=== PATIENT | female | born 1950 | race Caucasian/White ===

== ENCOUNTER 2017-10-16 07:12 | Inpatient (IN) ==
--- NOTE | 2017-10-15 18:32 | Anesthesia Evaluation PreOp ---
Date of Encounter: 10/16/17 Time of Encounter: 07:28 - Past History Planned Operation: Right Total Shoulder Cardiac History: HTN, Hyperlipidemia Pulmonary History: Denies Any Significant HX PUTTY PATCHER History: TIA Other Medical History: Renal (CKD, stage 3), Diabetes Type II, GERD, Other ( obesity BMI=46.4) Anesthesia History: No Prior Anesthetic Complications, Past Anesthesia Alcohol Use: none Drug use: none Medications and Allergies OxyCODONE Immed Rel [Roxicodone 5 MG] 5 mg PO Q6HR PRN 7 Days #28 tablet [Rx] Allopurinol [Zyloprim 100 MG] 100 mg PO DAILY 10/16/17 [History] Alogliptin Benzoate [Alogliptin] 25 mg PO DAILY 10/16/17 [History] Atorvastatin [Lipitor] 10 mg PO HS 10/16/17 [History] DULoxetine [Cymbalta] 30 mg PO DAILY 10/16/17 [History] Ergocalciferol (VITAMIN D2) [Vitamin D2] 50,000 unit PO SA 10/16/17 [History] Famotidine [Pepcid] 20 mg PO HS 10/16/17 [History] Fenofibrate Nanocrystallized [Triglide] 160 mg PO DAILY 10/16/17 [History] Furosemide [Lasix] 20 mg PO Q48H 10/16/17 [History] Furosemide [Lasix] 40 mg PO Q48H 10/16/17 [History] Insulin Glargine,Hum.rec.anlog [Basaglar Kwikpen U-100] 60 unit SQ HS 10/16/17 [ History] Insulin Glargine,Hum.rec.anlog [Basaglar Kwikpen U-100] 65 unit SQ QAM 10/16/17 [History] Insulin LISPRO [HumaLOG] 8 unit SQ 0800 10/16/17 [History] Insulin LISPRO [HumaLOG] 8 units SQ 1200 10/16/17 [History] Insulin LISPRO [HumaLOG] 12 units SQ 1800 10/16/17 [History] Loratadine [Claritin] 10 mg PO DAILY 10/16/17 [History] Losartan Potassium [Cozaar] 50 mg PO DAILY 10/16/17 [History] Magnesium Oxide [Magnesium] 400 mg PO BID 10/16/17 [History] Omeprazole [Omeprazole] 20 mg PO BID 10/16/17 [History] Potassium Chloride [K-Tab ER] 10 meq PO DAILY 10/16/17 [History] cloNIDine HCl [Clonidine HCl] 0.2 mg PO TID 10/16/17 [History] 3 Allergy/AdvReac Type Severity Reaction Status Date / Time gabapentin Allergy Difficulty Verified 10/16/17 07:42 Breathing meperidine [From Demerol] AdvReac Nausea Verified 10/16/17 07:42 pregabalin [From Lyrica] AdvReac See Verified 10/16/17 07:42 Comments - Meds/Allergy Pre-op Review Medications Reviewed: Yes Allergies Reviewed: Yes Beta Blockers on Current Med List: No Anesthesia Results - Labs Laboratory Tests 10/13/17 10/13/17 10/13/17 16:06 16:06 16:06 WBC 8.9 Hgb 14.0 Hct 41.4 Plt Count 199 PT 10.3 INR 1.0 APTT 28.2 Sodium 134 L Potassium 4.1 BUN 25 H Creatinine 1.36 H - Imaging EKG: report reviewed (08/11/2017 sinus rhythm, abnormal T-wave) Additional studies: 09/06/2017 [facility] Cardiology Discharge Summary "cardiac cath today is completely normal" 08/30/2017 Stress Lexiscan infusion was negative for ECG evidence of ischemia abnormal pharmacologic stress myocardial perfusion scan moderate sized area of moderate ischemia involving the basal to mid anterolateral wall no evidence of prior myocardial injury normal left ventricular systolic function with LVEF > 70% Anesthesia Exam O2 Sat Height 1.6 m Height 1.6 m Weight 118.841 kg Weight 118.841 kg O2 Sat by Pulse Oximetry 95 Vital Signs Temp Pulse Resp BP Pulse Ox 98.4 F 83 18 124/67 95 10/16/17 07:30 10/16/17 07:30 10/16/17 07:30 10/16/17 07:30 10/16/17 07:30 Blood Glucose* 119 Height: 5'3'' Weight: 262 lbs NPO (# of Hours): 8 Pain Scale: 6 (right shoulder) Pain Scale Used: Numeric (1 - 10) - HEENT Pupil (Motor): EOMI Mallampati: III Teeth: Edentulous Denture Type: Upper: Complete, Lower: Complete Oral Opening: Greater than 3 - PUTTY PATCHER LOC: Oriented PUTTY PATCHER Motor: Normal LUE, Normal RLE, Normal LLE, Normal Face, Deficit RUE PUTTY PATCHER Sensory: Normal: RUE, LUE, Face, Deficit: RLE, LLE - Cardiac Rhythm: Regular Murmur: None - Pulmonary Breath Sounds: bilateral Clear Respiratory Effort: Symmetrical Anesthesia Assess/Plan ASA Score: 3 Modified Delta Scale for Level of Consciousness: Cooperative, oriented, and tranquil Anesthetic Plan: General, Regional Monitoring Plan: Standard Monitors Recovery Plan: PACU
--- NOTE | 2017-10-15 23:28 | Discharge Summary ---
<Colette King - Last Filed: 10/15/17 23:26> Date of Encounter: 10/15/17 - Discharge Diagnosis (1) Status post reverse total replacement of right shoulder Priority: Primary Status: Acute (2) Rotator cuff tear arthropathy of right shoulder Priority: Primary Status: Acute - Hospital Course Hospital course: Ms. Browne is a 66 year old female - Time Spent with Patient Total time spent providing and/or coordinating discharge services: - Discharge Medications Home Medications: OxyCODONE Immed Rel [Roxicodone 5 MG] 5 mg PO Q6HR PRN 7 Days #28 tablet [Rx] Allopurinol [Zyloprim 100 MG] 100 mg PO DAILY 10/16/17 [History] Alogliptin Benzoate [Alogliptin] 25 mg PO DAILY 10/16/17 [History] Atorvastatin [Lipitor] 10 mg PO HS 10/16/17 [History] DULoxetine [Cymbalta] 30 mg PO DAILY 10/16/17 [History] Ergocalciferol (VITAMIN D2) [Vitamin D2] 50,000 unit PO SA 10/16/17 [History] Famotidine [Pepcid] 20 mg PO HS 10/16/17 [History] Fenofibrate Nanocrystallized [Triglide] 160 mg PO DAILY 10/16/17 [History] Furosemide [Lasix] 20 mg PO Q48H 10/16/17 [History] Furosemide [Lasix] 40 mg PO Q48H 10/16/17 [History] Insulin Glargine,Hum.rec.anlog [Basaglar Kwikpen U-100] 60 unit SQ HS 10/16/17 [ History] Insulin Glargine,Hum.rec.anlog [Basaglar Kwikpen U-100] 65 unit SQ QAM 10/16/17 [History] Insulin LISPRO [HumaLOG] 8 unit SQ 0800 10/16/17 [History] Insulin LISPRO [HumaLOG] 8 units SQ 1200 10/16/17 [History] Insulin LISPRO [HumaLOG] 12 units SQ 1800 10/16/17 [History] Loratadine [Claritin] 10 mg PO DAILY 10/16/17 [History] Losartan Potassium [Cozaar] 50 mg PO DAILY 10/16/17 [History] Magnesium Oxide [Magnesium] 400 mg PO BID 10/16/17 [History] Omeprazole 20 mg PO BID 10/16/17 [History] Potassium Chloride [K-Tab ER] 10 meq PO DAILY 10/16/17 [History] cloNIDine HCl [Clonidine HCl] 0.2 mg PO TID 10/16/17 [History] Allergies/Adverse Reactions: 3 Allergy/AdvReac Type Severity Reaction Status Date / Time gabapentin Allergy Difficulty Verified 10/16/17 07:42 Breathing meperidine [From Demerol] AdvReac Nausea Verified 10/16/17 07:42 pregabalin [From Lyrica] AdvReac See Verified 10/16/17 07:42 Comments Primary care physician: Rosamaria Hernandez, - Patient Status Disposition: Home, Self-Care Condition: Good - Discharge Instructions Follow Up With: Rosamaria Hernandez MD [Primary Care Provider] - <Lebron Jackson - Last Filed: 10/17/17 07:03> Orders not resulted at time of discharge: Pending orders 10/16/17 00:01 XR shoulder complete RT [XR] Routine H/H [Hemoglobin and Hematocrit] [HEME] Routine Date of Encounter: 10/17/17 Time of Encounter: 07:03 - Discharge Diagnosis (1) Morbid obesity with BMI of 45.0-49.9, adult Priority: Secondary Status: Chronic (2) Status post reverse total replacement of right shoulder Priority: Primary Status: Acute (3) Rotator cuff tear arthropathy of right shoulder Priority: Primary Status: Chronic (4) Hypertension Priority: Secondary Status: Chronic Qualifiers: Hypertension type: unspecified Qualified Code(s): I10 - Essential (primary ) hypertension (5) Hyperlipidemia Priority: Secondary Status: Chronic Qualifiers: Hyperlipidemia type: unspecified Qualified Code(s): E78.5 - Hyperlipidemia , unspecified (6) Type 2 diabetes mellitus Priority: Secondary Status: Acute Qualifiers: 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 Browne is a 66 year old female Status post right total shoulder replacement. The patient had an uneventful postoperative course. They received antibiotics and physical therapy and were discharged in stable condition. There will follow -up in the office in 2 weeks. - Time Spent with Patient Total time spent providing and/or coordinating discharge services: Primary care physician: Rosamaria Hernandez, - Patient Status Functional capacity at discharge: independent ambulation Overall status at discharge: patient is progressing back to baseline
--- NOTE | 2017-10-16 06:50 | History & Physical Report ---
Date of Encounter: 10/16/17 Time of Encounter: 06:50 24 Hour HP Update - Instructions Instructions: If the History and Physical is less than 30 days old and was completed prior to A.M. admission and or procedure and has NOT been updated on calendar day of procedure please complete this update prior to performing procedure. - Update Patient reports changes in Medical Condition: No Changes in examination, assessment, or condition: No Changes in Medication: No Preop tests/diagnostics Reviewed: Yes Surgery Remains Indicated: Yes Consent for Planned Operative Procedure(s) Verified: Yes - Pre-Operative Checklist Preoperative Checklist Indicated: No Prophylactic Antibiotic Ordered: Yes Is VTE Prophylaxis Indicated?: Yes
[2017-10-16] MEDS ORDERED: CeFAZolin Syr 3,000MG/30 ML 3,000 MG/30 ML SYRINGE IVPB ONE (07:37)
[2017-10-16] MEDS ORDERED: Ringers Solution, Lactated 1,000 ML IVC SCH (07:45)
--- NOTE | 2017-10-16 07:57 | History & Physical Report ---
Date of Encounter: 10/16/17 Time of Encounter: 07:56 24 Hour HP Update - Instructions Instructions: If the History and Physical is less than 30 days old and was completed prior to A.M. admission and or procedure and has NOT been updated on calendar day of procedure please complete this update prior to performing procedure. - Update Patient reports changes in Medical Condition: No Changes in examination, assessment, or condition: No Changes in Medication: No Preop tests/diagnostics Reviewed: Yes Surgery Remains Indicated: Yes Consent for Planned Operative Procedure(s) Verified: Yes - Pre-Operative Checklist Preoperative Checklist Indicated: No Prophylactic Antibiotic Ordered: Yes Is VTE Prophylaxis Indicated?: Yes
[2017-10-16] MEDS ORDERED: 0.9 % Sodium Chloride 500 ML IVC SCH ×2 (08:15→09:45)
[2017-10-16] MEDS ORDERED: Bupivacaine/Clonidine Syringe 1 EACH SYRINGE ONE (08:20)
[2017-10-16] MEDS ORDERED: ROPIVACAINE HCL/PF 0.5% 30 ML VIAL ONE (08:20)
[2017-10-16] MEDS ORDERED: Ondansetron 4 MG/2 ML VIAL ONE (08:21)
[2017-10-16] MEDS ORDERED: Lidocaine -MPF 4% 5 ML AMPUL ONE (08:21)
[2017-10-16] MEDS ORDERED: *HR* Midazolam HCl 2 MG/2 ML VIAL ONE (08:21)
[2017-10-16] MEDS ORDERED: *HR* Rocuronium Bromide 50 MG/5 ML VIAL ONE (08:21)
[2017-10-16] MEDS ORDERED: *HR* FentaNYL (PF) 100 MCG/2 ML VIAL ONE (08:21)
[2017-10-16] MEDS ORDERED: Dexamethasone 4 MG/ML VIAL ONE ×2 (08:21)
[2017-10-16] MEDS ORDERED: *HR* Propofol 200 MG/20 ML VIAL IVP ONE (08:21)
[2017-10-16] MEDS ORDERED: Lidocaine -MPF 2% 2 ML VIAL ONE (08:21)
[2017-10-16] MEDS ORDERED: *HR* Succinylcholine 200 MG/10 ML VIAL IVP ONE (08:21)
[2017-10-16] MEDS ORDERED: EPHEDrine 50 MG/ML VIAL ONE (09:17)
[2017-10-16] MEDS ORDERED: *HR* PHENYLEPHRINE 1,000 MCG/10 ML SYRINGE IVP ONE (09:25)
--- NOTE | 2017-10-16 09:26 | Anesthesia Procedures ---
Date of Encounter: 10/16/17 Time of Encounter: : Procedures: Anesthesia - Nerve Block Procedure Date: 10/16/17 Time: : Surgical Procedure: right tsr reverse Checklist: Correct Patient Identifier, Correct procedure, History checked Correct side: Right Blood Thinner: No Monitor Applied: EKG, BP, Pulse Oximetry Supplemental Oxygen via Nasal Cannula (L/min): 2 Sedation: Versed (mg): 2 Sedation: Fentanyl (mcg): 100 Indication: Post Op Analgesia (request per surgeon) Pre-op Neuro Deficits: No Block Type: Supraclavicular, Other (scp, icb) Catheter placed: No Sterile Technique: Yes Ultrasound used: Yes Anatomy identified: Yes Visual spread of Local: Yes Neuro Stimulation: No Blood on Needle Aspiration: No Smooth Injection of Local: Yes Pain with Injection of Local: No Prep: Chlorhexadine Needle: 22 x 50 mm Stimuplex Local: 0.25% Bupivicaine w/Clonidine 20 mcg/cc (for scp, icb), Ropivacaine (o.5 % with 8mg decadron) Volume (cc): 40 Number of Attempts: 1 Complications: None/effective block Vitals: Vital Signs/O2 Sat/Glucose, Most Current Temp Pulse Resp BP Pulse Ox 10/16/17 08:55 72 127/66 96 10/16/17 08:47 76 143/79 93 10/16/17 07:43 98.4 F 83 18 124/67 95 10/16/17 07:30 98.4 F 83 18 124/67 95 Comments: pt tolerated procedure well. no complications. vss.
[2017-10-16] MEDS ORDERED: Naloxone 0.4 MG/ML INJ IVP PRN ×2 (09:32→10:47)
[2017-10-16] MEDS ORDERED: *HR* Meperidine 25 MG/ML SYRINGE IVP PRN (09:32)
[2017-10-16] MEDS ORDERED: Ondansetron 4 MG/2 ML VIAL IVP ONE (09:32)
[2017-10-16] MEDS ORDERED: *HR* Promethazine 25 MG/ML VIAL IVP PRN (09:32)
[2017-10-16] MEDS ORDERED: Albuterol 2.5 MG/3 ML NEBULIZER IH ONE (09:32)
[2017-10-16] MEDS ORDERED: *HR* HYDROmorphone 2 MG TABLET PO PRN (09:32)
[2017-10-16] MEDS ORDERED: *HR* OxyCODONE Immed Rel 5 MG TABLET PO PRN (09:32)
--- NOTE | 2017-10-16 09:59 | Orthopedic Operative Note ---
Date of procedure: 10/16/17 Pre-op diagnosis: Right shoulder cuff tear arthropathy Post-op diagnosis: same Procedure: Procedure: Total Shoulder Replacment Reverse, right Estimated blood loss: 100 cc Hardware: Metal and polyethylene replacement: Arthrex small glenoid baseplate, 2 4.5 screws. 1 6.5 screw, 39+4 glenosphere, 7 humeral stem, poly insert 3 Exam Under anesthesia: Full motion no instability Procedural Notes: Irreparable tear supraspinatus tendon. Operative procedure: The patient was brought to the operating room and placed on the operating room table. After general anesthesia was administered the operative shoulder was examined. Findings were noted. The patient was placed in the modified beachchair position. All pressure points were padded appropriately. And the head was stabilized in the neutral position. The operative extremity was prepped and draped in the sterile surgical fashion. The patient received IV antibiotics prior to skin incision. A standard deltopectoral approach was made to the operative shoulder. Incision was made to the skin and subcutaneous tissue,hemo stasis was obtained with Bovie cautery. Using careful blunt dissection the cephalic vein was identified and mobilized medially. The deltopectoral interval was developed and the clavipectoral fascia was incised. The subscap was released off the lesser tuberosity and tagged with #2 FiberWire suture subscap was irreparable.. The humerus was dislocated patient noted to have irreparable tear supraspinatus tendon, and the humeral cut was made along the anatomic neck. Anterior and posterior Bankart retractors were placed to expose the glenoid. The glenoid guide was seated and the centering hole was made. It was reamed with the appropriate reamer. The small baseplate was seated and secured with (2) 4.5 screws and one 6.5 screw. The baseplate was irrigated and dried and the 39+4 Glenosphere was seated and secured with the Ramirez taper. The Ramirez taper was tested and found to be secure the humerus was redislocated and prepared with the diaphyseal reamers, followed by a broaching process up to the appropriate size 7 in the patient's anatomic version. The metaphyseal reamer was then utilized. Trial reduction found the shoulder to be relocatable. Trial components were removed and The appropriate 7 stem was impacted in place in the patient's anatomic version. Trial reduction found the shoulder to be relocatable and stable with the appropriate 3 [place]. Trial component was removed and the real implant was seated and secured the shoulder was reduced. The shoulder had excellent motion and excellent stability and no evidence of dislocation. The deep tissue was irrigated with pulse irrigation. The PA close the shoulder. The deltopectoral interval was closed with a running #1 PDS suture, subcutaneous tissue was irrigated and closed with 0 PDS suture, the skin was closed with Dermabond. The patient was placed in a sterile dressing, abduction brace and extubated. The patient was then transferred to the recovery room in stable condition. Anesthesia: GETA Surgeon: Lebron Jackson Was there an certified physical therapist assistant present: Yes Treating Engineer: Colette King Estimated blood loss (cc): 100 Condition: stable Disposition: PACU
--- NOTE | 2017-10-16 10:31 | Anesthesia Evaluation Post Op ---
Date of Encounter: 10/16/17 Time of Encounter: 10:31 - Vital Signs Vital Signs: vss - Airway Airway: Non-obstructed - Mental Status Mental Status: Asleep with brisk response to light stimulation - Pain Pain Scale used: Dane (Faces) - Nausea Vomiting Nausea Vomiting: Not Present - Hydration Hydration: Ice chips - Discharge PostOp Status: Transfer Patient to floor
[2017-10-16 10:40] LABS: Hematocrit 42.2 % (35.3-44.9); Hemoglobin 14.1 g/dL (11.5-15.4)
[2017-10-16] MEDS ORDERED: Ondansetron 4 MG/2 ML VIAL IVP PRN (10:47)
[2017-10-16] MEDS ORDERED: MOM Conc 10 ML UD.LIQ PO PRN (10:47)
[2017-10-16] MEDS ORDERED: Temazepam 15 MG CAPSULE PO PRN (10:47)
[2017-10-16] MEDS ORDERED: Sennosides 8.6 MG TABLET PO PRN (10:47)
[2017-10-16] MEDS ORDERED: *HR* Dextrose 50 % in Water (Syg) 50 ML SYRINGE IVP PRN (10:47)
[2017-10-16] MEDS ORDERED: D5% in Water 1,000 ML IVC PRN (10:47)
[2017-10-16] MEDS ORDERED: Furosemide 20 MG TABLET PO SCH (10:47)
[2017-10-16] MEDS ORDERED: Dextrose Gel 15 GM/37.5 ML TUBE PO PRN ×2 (10:47)
[2017-10-16] MEDS: Ringers Solution, Lactated 1,000 ML IVC SCH (12:18)
[2017-10-16] MEDS: Insulin LISPRO 300 UNITS/3 ML VIAL SQ SCH ×5 (12:26→20:41)
--- NOTE | 2017-10-16 14:07 | Physician Discharge Referral ---
Home Health/Hosp Referral Info Transfer to: Home Health Attending Provider: Provider in Charge Post Discharge: PCP - Diagnosis (1) Status post reverse total replacement of right shoulder Priority: Primary Status: Acute (2) Rotator cuff tear arthropathy of right shoulder Priority: Primary Status: Chronic (3) Morbid obesity with BMI of 45.0-49.9, adult Status: Chronic (4) Hypertension Priority: Secondary Status: Chronic (5) Hyperlipidemia Priority: Secondary Status: Chronic (6) Type 2 diabetes mellitus Priority: Secondary Status: Acute (7) Chronic kidney disease, stage III (moderate) Priority: Secondary Status: Chronic - Respiratory Orders None Smoking Cessation: Smoking cessation has been advised. For more information, call the [employer] Quit Line at 9-688-PWLV-NOW. - Diet/Nutrition Diet/Nutrition Orders: Regular - Activity Activity Orders: Up ad dick, Ambulate - Services Needed Following services are medically necessary services: Nursing, Home Health Aide, Occupational Therapy Other Treatments: Rehab orders for total shoulder: OT only - NO SHOULDER MOTION. Elbow ROM ok, hand/legal analyst motion. - 6 weeks NWB to affected upper extremity. Follow Shoulder Precautions x 6 weeks. Stay in brace during activity and at night. Remove brace to perform elbow exercises ICE and elevate extremity frequently throughout the day. Treatments: [place] in place, plan to remove at post-operative day #14-16. Opsite placed. Keep dressing intact until first follow up appointment. If > 50% saturated, notify office, remove dressing and place appropriate dressing back in place. Leave Zipline intact. Opsite dressing is water resistant, not water- proof. OK to shower, but do not get dressing wet. - Transfer Medications Home Medications: OxyCODONE Immed Rel [Roxicodone 5 MG] 5 mg PO Q6HR PRN 7 Days #28 tablet [Rx] Allopurinol [Zyloprim 100 MG] 100 mg PO DAILY 10/16/17 [History] Alogliptin Benzoate [Alogliptin] 25 mg PO DAILY 10/16/17 [History] Atorvastatin [Lipitor] 10 mg PO HS 10/16/17 [History] DULoxetine [Cymbalta] 30 mg PO DAILY 10/16/17 [History] Ergocalciferol (VITAMIN D2) [Vitamin D2] 50,000 unit PO SA 10/16/17 [History] Famotidine [Pepcid] 20 mg PO HS 10/16/17 [History] Fenofibrate Nanocrystallized [Triglide] 160 mg PO DAILY 10/16/17 [History] Furosemide [Lasix] 20 mg PO Q48H 10/16/17 [History] Furosemide [Lasix] 40 mg PO Q48H 10/16/17 [History] Insulin Glargine,Hum.rec.anlog [Basaglar Kwikpen U-100] 60 unit SQ HS 10/16/17 [ History] Insulin Glargine,Hum.rec.anlog [Basaglar Kwikpen U-100] 65 unit SQ QAM 10/16/17 [History] Insulin LISPRO [HumaLOG] 8 unit SQ 0800 10/16/17 [History] Insulin LISPRO [HumaLOG] 8 units SQ 1200 10/16/17 [History] Insulin LISPRO [HumaLOG] 12 units SQ 1800 10/16/17 [History] Loratadine [Claritin] 10 mg PO DAILY 10/16/17 [History] Losartan Potassium [Cozaar] 50 mg PO DAILY 10/16/17 [History] Magnesium Oxide [Magnesium] 400 mg PO BID 10/16/17 [History] Omeprazole 20 mg PO BID 10/16/17 [History] Potassium Chloride [K-Tab ER] 10 meq PO DAILY 10/16/17 [History] cloNIDine HCl [Clonidine HCl] 0.2 mg PO TID 10/16/17 [History] Allergies/Adverse Reactions: 3 Allergy/AdvReac Type Severity Reaction Status Date / Time gabapentin Allergy Difficulty Verified 10/16/17 07:42 Breathing meperidine [From Demerol] AdvReac Nausea Verified 10/16/17 07:42 pregabalin [From Lyrica] AdvReac See Verified 10/16/17 07:42 Comments Certification: Further, I certify that my clinical findings support that this patient is homebound (i.e. absences from home require considerable and taxing effort and are for medical reasons or sabianism services or infrequently or short duration when for other reasons) because: Homebound Reason: Post-surgery restriction and or conditions limit ability to leave home Attestation: My signature below is to certify that this patient is under my care and that I, or nurse practitioner, or a physician's esl instructional assistant working with me, has a face-to -face encounter with this patient.
[2017-10-16] MEDS: cloNIDine HCl 0.1 MG TABLET PO SCH ×2 (14:46→20:35)
[2017-10-16] MEDS: Furosemide 20 MG TABLET PO SCH (14:46)
[2017-10-16] MEDS: CeFAZolin Syr 3,000MG/30 ML 3,000 MG/30 ML SYRINGE IVPB SCH ×2 (17:12→23:46)
[2017-10-16] MEDS: *HR* Enoxaparin 30 MG/0.3 ML SYRINGE SQ SCH (17:12)
[2017-10-16] MEDS ORDERED: *HR* Enoxaparin 30 MG/0.3 ML SYRINGE SQ SCH (18:00)
[2017-10-16] MEDS: Magnesium Oxide 400 MG TABLET PO SCH (20:35)
[2017-10-16] MEDS: Famotidine 20 MG TABLET PO SCH (20:35)
[2017-10-16] MEDS: Insulin DETEMIR 100 UNIT/ML X5UNITS SQ SCH (20:39)
[2017-10-16] MEDS: *HR* OxyCODONE/APAP 5/325 TABLET PO PRN (23:59)
[2017-10-17 02:10] LABS: Hematocrit 38.8 % (35.3-44.9); Hemoglobin 12.8 g/dL (11.5-15.4)
[2017-10-17] MEDS: *HR* Enoxaparin 30 MG/0.3 ML SYRINGE SQ SCH ×2 (04:56→17:07)
[2017-10-17] MEDS: *HR* OxyCODONE/APAP 5/325 TABLET PO PRN ×2 (06:53→11:16)
--- NOTE | 2017-10-17 07:04 | Orthopedics Progress Note ---
Date of Encounter: 10/17/17 Time of Encounter: 07:04 - Assessment and Plan (1) Morbid obesity with BMI of 45.0-49.9, adult Current Visit: Yes Status: Chronic (2) Status post reverse total replacement of right shoulder Current Visit: No Status: Acute (3) Rotator cuff tear arthropathy of right shoulder Current Visit: No Status: Chronic (4) Hypertension Current Visit: Yes Status: Chronic Qualifiers: Hypertension type: unspecified Qualified Code(s): I10 - Essential (primary ) hypertension (5) Hyperlipidemia Current Visit: Yes Status: Chronic Qualifiers: Hyperlipidemia type: unspecified Qualified Code(s): E78.5 - Hyperlipidemia , unspecified (6) Type 2 diabetes mellitus Current Visit: Yes Status: Acute 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 Afebrile vital signs stable. Operative extremity: Neurovascularly intact Dressing clean dry and intact Calves nontender Assessment and plan: Continue with postoperative care Hematocrit 38 discharged today Objective Vital signs: Vital Signs Temp Pulse Resp BP Pulse Ox 10/17/17 02:57 98.3 F 76 15 103/64 95 10/16/17 23:23 98.2 F 68 15 112/67 92 10/16/17 20:36 98.1 F 69 16 126/67 93 10/16/17 14:42 98.8 F 88 16 126/75 95 10/16/17 13:05 98.6 F 86 16 130/62 94 10/16/17 12:33 98.3 F 86 16 117/72 95 10/16/17 11:34 98.0 F 83 16 112/69 95 10/16/17 11:29 96 10/16/17 11:04 98.2 F 82 16 121/70 96 10/16/17 10:42 98.2 F 82 16 114/57 96 10/16/17 10:32 86 16 110/52 96 10/16/17 10:22 87 16 111/60 100 10/16/17 10:12 99.2 F 98 16 149/86 98 10/16/17 08:55 72 127/66 96 10/16/17 08:47 76 143/79 93 10/16/17 07:43 98.4 F 83 18 124/67 95 10/16/17 07:30 98.4 F 83 18 124/67 95 Intake and Output 10/16/17 10/16/17 10/17/17 15:59 23:59 07:59 Intake Total 30 / 30 410 / 410 Output Total 100 / 100 200 / 200 Balance -70 / -70 210 / 210 Intake: IV Fluids / 30 60 / 60 Ancef Syringe 3,000 MG/30 ML 3, 30 / 30 60 / 60 000 mg In 30 ml @ 200 mls/hr IVPB Q8H JODY Rx#:[id number] Oral 350 / 350 Output: Urine 200 / 200 Estimated Blood Loss 100 / 100 Other: # Voids 1 1 Blood Glucose* 171 399 - Labs CBC & BMP: 10/17/17 01:52 Labs: Abnormal lab results POC Glucose 266 mg/dL (70-99) H 10/16/17 16:08 - VTE Documentation of Mechanical Device: Venous foot pump, device Consult Discharge Plan - Plan Referrals: Rosamaria Hernandez MD [Primary Care Provider] -
[2017-10-17] MEDS: cloNIDine HCl 0.1 MG TABLET PO SCH ×3 (07:35→19:42)
[2017-10-17] MEDS: Magnesium Oxide 400 MG TABLET PO SCH ×2 (07:36→19:42)
[2017-10-17] MEDS: Furosemide 40 MG TABLET PO SCH (07:36)
[2017-10-17] MEDS: Loratadine 10 MG TABLET PO SCH (07:37)
[2017-10-17] MEDS: Fenofibrate 54 MG TABLET PO SCH (07:37)
[2017-10-17] MEDS: Insulin LISPRO 300 UNITS/3 ML VIAL SQ SCH ×7 (07:38→20:33)
[2017-10-17] MEDS: Insulin DETEMIR 100 UNIT/ML X5UNITS SQ SCH ×2 (07:38→20:37)
[2017-10-17] MEDS: (Alogliptin Benzoate [Alogliptin] 25 MG) PO SCH (07:39)
[2017-10-17] MEDS: Ringers Solution, Lactated 1,000 ML IVC SCH (11:19)
[2017-10-17] MEDS: traMADol 50 MG TABLET PO PRN ×2 (12:18→19:02)
[2017-10-17 13:36] LABS: Calcium 9.1 mg/dL (8.6-10.3); Potassium 4.8 mEq/L (3.5-5.1)
[2017-10-17] MEDS: *HR* OxyCODONE Immed Rel 5 MG TABLET PO PRN ×2 (15:33→23:05)
[2017-10-17] MEDS: Famotidine 20 MG TABLET PO SCH (19:42)
--- NOTE | 2017-10-17 21:49 | Event Note ---
Date of Encounter: 10/17/17 Time of Encounter: 21:44 PCR - POD#1 - TSR - evie placed - No shoulder ROM x 6 weeks . Patient seen at bedside. Patient was seen this morning doing well, without complaints Afebrile, vital signs stable. Labs reviewed. H/H - stable, asymptomatic Monitoring renal function closely secondary to CKD III. Pain control: adequate Participating in PT. All questions and concerns addressed. Educated on use of incentive spirometer. Encouraged ambulation and proper hydration. Patient educated on post-operative restrictions and post-operative care. Assessment and plan: Continue with postoperative care Discharge plan: ECF - continuity placed.
--- NOTE | 2017-10-17 21:52 | Physician Discharge Referral ---
ExtendedCare Referral Info Transfer To: [facility] Provider in Charge: Provider in Charge after Transfer: PCP Institutional Level of Care: Skilled - Diagnosis (1) Status post reverse total replacement of right shoulder Priority: Primary Status: Acute (2) Rotator cuff tear arthropathy of right shoulder Priority: Primary Status: Chronic (3) Morbid obesity with BMI of 45.0-49.9, adult Status: Chronic (4) Hypertension Status: Chronic (5) Hyperlipidemia Status: Chronic (6) Type 2 diabetes mellitus Status: Acute (7) Chronic kidney disease, stage III (moderate) Status: Chronic - Transfer Medications Home Medications: OxyCODONE Immed Rel [Roxicodone 5 MG] 5 mg PO Q6HR PRN 7 Days #28 tablet [Rx] Allopurinol [Zyloprim 100 MG] 100 mg PO DAILY 10/16/17 [History] Alogliptin Benzoate [Alogliptin] 25 mg PO DAILY 10/16/17 [History] Atorvastatin [Lipitor] 10 mg PO HS 10/16/17 [History] DULoxetine [Cymbalta] 30 mg PO DAILY 10/16/17 [History] Ergocalciferol (VITAMIN D2) [Vitamin D2] 50,000 unit PO SA 10/16/17 [History] Famotidine [Pepcid] 20 mg PO HS 10/16/17 [History] Fenofibrate Nanocrystallized [Triglide] 160 mg PO DAILY 10/16/17 [History] Furosemide [Lasix] 20 mg PO Q48H 10/16/17 [History] Furosemide [Lasix] 40 mg PO Q48H 10/16/17 [History] Insulin Glargine,Hum.rec.anlog [Basaglar Kwikpen U-100] 60 unit SQ HS 10/16/17 [ History] Insulin Glargine,Hum.rec.anlog [Basaglar Kwikpen U-100] 65 unit SQ QAM 10/16/17 [History] Insulin LISPRO [HumaLOG] 8 unit SQ 0800 10/16/17 [History] Insulin LISPRO [HumaLOG] 8 units SQ 1200 10/16/17 [History] Insulin LISPRO [HumaLOG] 12 units SQ 1800 10/16/17 [History] Loratadine [Claritin] 10 mg PO DAILY 10/16/17 [History] Losartan Potassium [Cozaar] 50 mg PO DAILY 10/16/17 [History] Magnesium Oxide [Magnesium] 400 mg PO BID 10/16/17 [History] Omeprazole 20 mg PO BID 10/16/17 [History] Potassium Chloride [K-Tab ER] 10 meq PO DAILY 10/16/17 [History] cloNIDine HCl [Clonidine HCl] 0.2 mg PO TID 10/16/17 [History] Allergies/Adverse Reactions: 3 Allergy/AdvReac Type Severity Reaction Status Date / Time gabapentin Allergy Difficulty Verified 10/16/17 07:42 Breathing meperidine [From Demerol] AdvReac Nausea Verified 10/16/17 07:42 pregabalin [From Lyrica] AdvReac See Verified 10/16/17 07:42 Comments - Respiratory Orders None Smoking Cessation: Smoking cessation has been advised. For more information, call the [place] Tobacco Quit Line at 7-299-BMDP-NOW. - Mobility Orders Ambulate - Rehabiliation Orders Rehab Potential: Good - Treatments List/Other: Shoulder Precautions x 6 weeks. Apply cold therapy wrap 3-6x/day for 20 minutes at a time. Encourage ambulation throughout the day. Use Incentive spirometer 10x/hour. Elevate affected extremity above heart as tolerated. NWB to affected upper extremity x 6 weeks. NO SHOULDER ROM, elbow rom only. CONTINUE IN SLING X 6 WEEKS. Opsite dressing, leave intact until first post-operative visit. Zipline/ [place] in place, plan to remove at post-operative day #14-16. If dressing becomes >50% saturated, contact office, remove dressing and place appropriate dressing in its place. Do not allow for dressing to get wet. CERTIFICATION: I certify that the transfer of the above named patient to an Extended Care Facility is necessary for the continuing treatment of the diagnosis listed. The above information is true and accurate reflection of patient's current condition. Confidential - Redisclosure prohibited without a patient's written consent.
[2017-10-18 01:39] LABS: Hematocrit 40.5 % (35.3-44.9); Hemoglobin 13.4 g/dL (11.5-15.4)
[2017-10-18] MEDS: *HR* OxyCODONE Immed Rel 5 MG TABLET PO PRN ×5 (04:33→23:19)
[2017-10-18] MEDS: *HR* Enoxaparin 30 MG/0.3 ML SYRINGE SQ SCH ×2 (04:34→17:42)
--- NOTE | 2017-10-18 06:21 | Orthopedics Progress Note ---
Date of Encounter: 10/18/17 Time of Encounter: 06:20 - Assessment and Plan (1) Morbid obesity with BMI of 45.0-49.9, adult Current Visit: Yes Status: Chronic (2) Status post reverse total replacement of right shoulder Current Visit: No Status: Acute (3) Rotator cuff tear arthropathy of right shoulder Current Visit: No Status: Chronic (4) Hypertension Current Visit: Yes Status: Chronic Qualifiers: Hypertension type: unspecified Qualified Code(s): I10 - Essential (primary ) hypertension (5) Hyperlipidemia Current Visit: Yes Status: Chronic Qualifiers: Hyperlipidemia type: unspecified Qualified Code(s): E78.5 - Hyperlipidemia , unspecified (6) Type 2 diabetes mellitus Current Visit: Yes Status: Acute Qualifiers: Diabetes mellitus manager long term care insulin use: unspecified long-term insulin use status Diabetes mellitus complication status: without complication Qualified Code(s): E11.9 - Type 2 diabetes mellitus without complications (7) Chronic kidney disease, stage III (moderate) Current Visit: Yes Status: Chronic Subjective Interval history: Patient was seen this morning doing well without complaints. Afebrile vital signs stable. Operative extremity: Neurovascularly intact Dressing clean dry and intact Calves nontender Assessment and plan: Continue with postoperative care Hematocrit 40 discharged today Objective Vital signs: Vital Signs Temp Pulse Resp BP Pulse Ox 10/18/17 00:11 98.4 F 54 14 105/62 92 10/17/17 18:49 98.3 F 62 16 129/55 94 10/17/17 16:12 97.7 F 54 16 140/95 99 10/17/17 11:38 98.0 F 59 16 121/54 97 10/17/17 07:51 95 10/17/17 07:21 98.5 F 61 16 111/66 95 Intake and Output 10/17/17 10/17/17 10/18/17 15:59 23:59 07:59 Intake Total 1480 / 1480 170 / 170 Balance 1480 / 1480 170 / 170 Intake: IV Fluids 1000 / 1000 Lactated Ringers 1,000 ML @ 75 1000 / 1000 mls/hr IVC .[id number] JODY Rx#: [id number] Oral 480 / 480 170 / 170 Other: Meal Lunch Dinner Percent of Meal Consumed 100% 75% # Voids 1 1 1 Blood Glucose* 288 163 - Labs CBC & BMP: 10/18/17 01:24 10/17/17 13:09 Labs: Abnormal lab results BUN 29 mg/dL (8-23) H 10/17/17 13:09 Creatinine 1.65 mg/dL (0.60-1.20) H 10/17/17 13:09 Est GFR ( Amer) 38 (> 60) L 10/17/17 13:09 Est GFR (Non-Af Amer) 31 (> 60) L 10/17/17 13:09 Glucose 281 mg/dL (70-105) H 10/17/17 13:09 POC Glucose 163 mg/dL (70-99) H 10/17/17 20:11 - VTE Documentation of Mechanical Device: Venous foot pump, device Consult Discharge Plan - Plan Referrals: Rosamaria Hernandez MD [Primary Care Provider] -
[2017-10-18] MEDS: traMADol 50 MG TABLET PO PRN (07:44)
[2017-10-18] MEDS: Magnesium Oxide 400 MG TABLET PO SCH ×2 (08:36→19:50)
[2017-10-18] MEDS: cloNIDine HCl 0.1 MG TABLET PO SCH ×3 (08:36→19:50)
[2017-10-18] MEDS: Fenofibrate 54 MG TABLET PO SCH (08:37)
[2017-10-18] MEDS: Loratadine 10 MG TABLET PO SCH (08:37)
[2017-10-18] MEDS: Insulin DETEMIR 100 UNIT/ML X5UNITS SQ SCH ×2 (08:39→19:57)
[2017-10-18] MEDS: Insulin LISPRO 300 UNITS/3 ML VIAL SQ SCH ×7 (08:40→19:57)
[2017-10-18] MEDS: (Alogliptin Benzoate [Alogliptin] 25 MG) PO SCH (08:41)
[2017-10-18 09:00] LABS: Potassium 4.4 mEq/L (3.5-5.1)
[2017-10-18] MEDS: Furosemide 20 MG TABLET PO SCH (12:26)
--- NOTE | 2017-10-18 14:24 | Event Note ---
Date of Encounter: 10/18/17 Time of Encounter: 14:20 PCR - POD#2 - TSR - evie placed - No shoulder ROM x 6 weeks . Patient seen at bedside. Patient states she is not feeling well today. She states every time she gets up she feels ready shaky and lightheaded. She states she has some chest pain early this morning which is resolved at this point. Chest x-ray was obtained showing stable cardiopulmonary. On 2 L of oxygen via nasal cannula for decreased oxygen saturation. Afebrile, vital signs stable. Labs reviewed. H/H - stable, asymptomatic Monitoring renal function closely secondary to CKD III. - renal labs improved today 10/18 Pain control: adequate Participating in PT. All questions and concerns addressed. Educated on use of incentive spirometer. Encouraged ambulation and proper hydration. Patient educated on post-operative restrictions and post-operative care. Assessment and plan: Continue with postoperative care Discharge plan: ECF - continuity in place
[2017-10-18] MEDS: *HR* OxyCODONE/APAP 5/325 TABLET PO PRN (19:49)
[2017-10-18] MEDS: Famotidine 20 MG TABLET PO SCH (19:49)
[2017-10-19] MEDS: *HR* OxyCODONE/APAP 5/325 TABLET PO PRN ×2 (02:53→16:27)
[2017-10-19] MEDS: *HR* OxyCODONE Immed Rel 5 MG TABLET PO PRN ×2 (04:46→11:44)
[2017-10-19] MEDS: *HR* Enoxaparin 30 MG/0.3 ML SYRINGE SQ SCH (04:46)
[2017-10-19] MEDS: Insulin LISPRO 300 UNITS/3 ML VIAL SQ SCH ×4 (08:47→12:11)
[2017-10-19] MEDS: cloNIDine HCl 0.1 MG TABLET PO SCH (08:47)
[2017-10-19] MEDS: Fenofibrate 54 MG TABLET PO SCH (08:48)
[2017-10-19] MEDS: Magnesium Oxide 400 MG TABLET PO SCH (08:48)
[2017-10-19] MEDS: Loratadine 10 MG TABLET PO SCH (08:48)
[2017-10-19] MEDS: Furosemide 40 MG TABLET PO SCH (08:49)
[2017-10-19] MEDS: Insulin DETEMIR 100 UNIT/ML X5UNITS SQ SCH (08:50)
[2017-10-19] MEDS: (Alogliptin Benzoate [Alogliptin] 25 MG) PO SCH (08:50)
--- NOTE | 2017-10-19 09:00 | Orthopedics Progress Note ---
Date of Encounter: 10/19/17 Time of Encounter: 08:59 - Assessment and Plan (1) Morbid obesity with BMI of 45.0-49.9, adult Current Visit: Yes Status: Chronic (2) Status post reverse total replacement of right shoulder Current Visit: No Status: Acute (3) Rotator cuff tear arthropathy of right shoulder Current Visit: No Status: Chronic (4) Hypertension Current Visit: Yes Status: Chronic Qualifiers: Hypertension type: unspecified Qualified Code(s): I10 - Essential (primary ) hypertension (5) Hyperlipidemia Current Visit: Yes Status: Chronic Qualifiers: Hyperlipidemia type: unspecified Qualified Code(s): E78.5 - Hyperlipidemia , unspecified (6) Type 2 diabetes mellitus Current Visit: Yes Status: Acute Qualifiers: Diabetes mellitus custodial insulin use: unspecified custodial insulin use status Diabetes mellitus complication status: without complication Qualified Code(s): E11.9 - Type 2 diabetes mellitus without complications (7) Chronic kidney disease, stage III (moderate) Current Visit: Yes Status: Chronic Subjective Interval history: Patient was seen this morning doing well without complaints. Afebrile vital signs stable. Operative extremity: Neurovascularly intact Dressing clean dry and intact [place]ves nontender Assessment and plan: Continue with postoperative care discharged today Objective Vital signs: Vital Signs Temp Pulse Resp BP Pulse Ox 10/19/17 06:57 98.5 F 76 18 108/64 97 10/19/17 04:29 98.8 F 67 16 100/58 95 10/18/17 23:24 95 10/18/17 23:13 98.4 F 72 16 138/81 95 10/18/17 19:33 97 10/18/17 18:47 97.9 F 65 16 109/74 95 10/18/17 15:19 98.6 F 64 14 116/67 98 10/18/17 10:52 98.4 F 80 18 126/79 95 Intake and Output 10/18/17 10/19/17 10/19/17 23:59 07:59 15:59 Intake Total 625 / 625 100 / 100 Balance 625 / 625 100 / 100 Intake: Oral 625 / 625 100 / 100 Other: # Voids 1 Blood Glucose* 178 105 - Labs CBC & BMP: 10/18/17 01:24 10/18/17 08:19 Labs: Abnormal lab results BUN 30 mg/dL (8-23) H 10/18/17 08:19 Creatinine 1.32 mg/dL (0.60-1.20) H 10/18/17 08:19 Est GFR ( Amer) 49 (> 60) L 10/18/17 08:19 Est GFR (Non-Af Amer) 41 (> 60) L 10/18/17 08:19 Glucose 106 mg/dL (70-105) H 10/18/17 08:19 POC Glucose 163 mg/dL (70-99) H 10/17/17 20:11 - VTE Documentation of Mechanical Device: Venous foot pump, device Consult Discharge Plan - Plan Referrals: Rosamaria Hernandez MD [Primary Care Provider] -
[2017-10-19] MEDS: traMADol 50 MG TABLET PO PRN (14:31)
[2017-10-19 15:27] VITALS: BP 106/60
== END 2017-10-19 16:54 | disposition home or self-care (01) | DRG 315 ==
LOC: SAMDAY 07:12 → 3NENU 11:44
PROVIDERS: ADMIT Orthopaedic Surgery; ATTEND Orthopaedic Surgery